=== PATIENT | female | born 1965 | race Two or more races ===

== ENCOUNTER → 2016-07-29 | Day surgery (SDC) | payer OTHER ==
[~2016-07-29] MED LIST: BUPIVACAINE HCL/PF 0.5% (5MG/ML) 10 ML VIAL ONE
== END | disposition home or self-care (01) ==
LOC: JRADIR 09:20
PROVIDERS: ATTEND Orthopaedic Surgery
PROC: 0PB Upper Bones, Excision (ICD-10-PCS; principal; 2016-07-29)
DX: D48.0 Neoplasm of uncertain behavior of bone and articular cartilage (principal); C50.919 Malignant neoplasm of unspecified site of unspecified female breast
CPT/HCPCS: 27093; 73525-TC; 76000-TC

== ENCOUNTER → 2016-08-23 | Day surgery (SDC) | payer OTHER | END | disposition home or self-care (01) | LOC: JRADIR 11:00 | PROVIDERS: ATTEND Orthopaedic Surgery | PROC: BQ01YZZ Plain Radiography of Left Hip using Other Contrast (ICD-10-PCS; principal; 2016-08-23) | PROC: 3E0U33Z Introduction of Anti-inflammatory into Joints, Percutaneous Approach (ICD-10-PCS; 2016-08-23) | PROC: 3E0U3BZ Introduction of Anesthetic Agent into Joints, Percutaneous Approach (ICD-10-PCS; 2016-08-23) | DX: M16.12 Unilateral primary osteoarthritis, left hip (principal) | CPT/HCPCS: 73525; G0260; 27093; 76000-TC ==

== ENCOUNTER 2023-04-01 10:52 | Emergency (ER) | payer OTHER ==
[2023-04-01 10:56] VITALS: BP 173/74; PULSE 101; RESP 18; TEMP 99.4; BMI 30.7
[2023-04-01] MEDS ORDERED: ACETAMINOPHEN 500 MG TABLET (FP) PO ONE (10:59)
[2023-04-01] MEDS ORDERED: ACETAMINOPHEN 325 MG TABLET (FP) ONE (11:07)
== END 2023-04-01 12:23 | disposition home or self-care (01) ==
LOC: FER 10:52
DX: M25.571 Pain in right ankle and joints of right foot (principal); R22.41 Localized swelling, mass and lump, right lower limb; R20.2 Paresthesia of skin; R22.0 Localized swelling, mass and lump, head
CPT/HCPCS: 73610-TC-RT-FY; 73630-TC-RT-FY; 99283-25